=== PATIENT | male | born 1960 | race Caucasian/White ===

== ENCOUNTER 2023-07-14 20:21 | Inpatient (IN) | payer MEDICARE, MEDICAID ==
[~2023-07-14] VITALS: Ht 190.5 cm; Wt 86.4 kg
[2023-07-14] MEDS ORDERED: temazepam 15mg capsule PO PRN (21:00)
[2023-07-14 21:15] LABS: BASOPHILS # (AUTO) 0.1 X10'3 (0-0.2); BASOPHILS % (AUTO) 0.8 % (0-1); EOSINOPHILS # (AUTO) 0.1 X10'3 (0-0.9); EOSINOPHILS % (AUTO) 1.9 % (0-6); HEMATOCRIT 44.6 % (42.0-52.0); HEMOGLOBIN 14.9 g/dl (14.0-17.9); LYMPHOCYTES # (AUTO) 1.7 X10'3 (1.1-4.8); LYMPHOCYTES % (AUTO) 23.5 % (21-51); MEAN CORPUSCULAR HEMOGLOBIN 29.6 PG (27.0-31.0); MEAN CORPUSCULAR HGB CONC 33.5 g/dL (33.0-36.5); MEAN CORPUSCULAR VOLUME 88.3 FL (78-98); MEAN PLATELET VOLUME 7.8 FL (7.4-10.4); MONOCYTES # (AUTO) 0.4 X10'3 (0-0.9); MONOCYTES % (AUTO) 5.3 % (2-12); NEUTROPHILS % (AUTO) 68.5 % (42-75); PLATELET COUNT 254 X10'3 (140-440); RED BLOOD COUNT 5.05 X10'6 (4.70-6.10); RED CELL DISTRIBUTION WIDTH 13.4 % (11.5-14.5); WHITE BLOOD COUNT 7.3 X10'3 (4.5-11.0)
[2023-07-14] MEDS ORDERED: mag hydrox/Alum hydrox/simeth 30ml oral suspension PO PRN (21:20)
[2023-07-14] MEDS ORDERED: ondansetron/PF 4mg/2ml inj IV PRN (21:20)
[2023-07-14] MEDS ORDERED: magnesium 4gm in 100ml NS 100 ML IV PRN (21:20)
[2023-07-14] MEDS: normal saline 1000ml 1,000 ML IV SCH (21:20)
[2023-07-14] MEDS ORDERED: magnesium Cl slow-release 64mg tablet PO PRN (21:20)
[2023-07-14] MEDS ORDERED: acetaminophen 325mg tablet PO PRN (21:20)
[2023-07-14] MEDS ORDERED: potassium Cl 40MEQ/1/2NS 520ml 520 ML IV PRN (21:20)
[2023-07-14] MEDS ORDERED: potassium Cl 20 mEq SR tablet PO PRN ×2 (21:20)
[2023-07-14] MEDS ORDERED: magnesium hydroxide 30ml (MOM) UD suspension PO PRN (21:20)
[2023-07-14 21:21] LABS: APTT 28 SECONDS (22-32); INR 1.1 INR; PROTHROMBIN TIME 11.3 SECONDS (9.0-12.0)
[2023-07-14 21:23] LABS: ALANINE AMINOTRANSFERASE 25 U/L (12-78); ALBUMIN 3.6 G/DL (3.4-5.0); ALBUMIN/GLOBULIN RATIO 0.9 (1.1-1.5); ALKALINE PHOSPHATASE 87 IU/L (46-116); ANION GAP 7 (8-16); ASPARTATE AMINO TRANSFERASE 16 U/L (10-37); BILIRUBIN,TOTAL 0.5 MG/DL (0.1-1.0); BLOOD UREA NITROGEN 16 MG/DL (7-18); BUN/CREATININE RATIO 18.2 (10.0-20.0); CALCIUM 8.6 MG/DL (8.5-10.1); CHLORIDE 103 MMOL/L (99-107); CREATININE 0.88 MG/DL (0.60-1.10); GLUCOSE 146 MG/DL (70-104); POTASSIUM 3.5 MMOL/L (3.5-5.1); SODIUM 140 MMOL/L (135-145); TOTAL CARBON DIOXIDE 29.9 MMOL/L (24-32); TOTAL PROTEIN 7.5 G/DL (6.4-8.2); eCRCL 105 ML/MIN; eGFR 88 ML/MIN
[2023-07-14] MEDS ORDERED: PERFLUTREN PROTEIN-A MICROSPHR (Optison) 0.22 MG/ML 3ML VIAL IV PRN (21:25)
[2023-07-14 21:40] LABS: HEMOGLOBIN A1C 5.5 % (4.5-6.2)
[2023-07-15 02:48] LABS: BASOPHILS # (AUTO) 0.1 X10'3 (0-0.2); EOSINOPHILS # (AUTO) 0.1 X10'3 (0-0.9); EOSINOPHILS % (AUTO) 2.3 % (0-6); HEMATOCRIT 43.1 % (42.0-52.0); HEMOGLOBIN 14.8 g/dl (14.0-17.9); LYMPHOCYTES # (AUTO) 1.6 X10'3 (1.1-4.8); LYMPHOCYTES % (AUTO) 24.7 % (21-51); MEAN CORPUSCULAR HEMOGLOBIN 30.5 PG (27.0-31.0); MEAN CORPUSCULAR HGB CONC 34.3 g/dL (33.0-36.5); MEAN CORPUSCULAR VOLUME 88.8 FL (78-98); MEAN PLATELET VOLUME 7.9 FL (7.4-10.4); MONOCYTES # (AUTO) 0.4 X10'3 (0-0.9); MONOCYTES % (AUTO) 6.3 % (2-12); NEUTROPHILS # (AUTO) 4.3 X10'3 (1.8-7.7); NEUTROPHILS % (AUTO) 65.7 % (42-75); PLATELET COUNT 243 X10'3 (140-440); RED BLOOD COUNT 4.85 X10'6 (4.70-6.10); RED CELL DISTRIBUTION WIDTH 13.2 % (11.5-14.5); WHITE BLOOD COUNT 6.5 X10'3 (4.5-11.0)
[2023-07-15 02:53] LABS: ALBUMIN 3.6 G/DL (3.4-5.0); ANION GAP 8 (8-16); BLOOD UREA NITROGEN 18 MG/DL (7-18); BUN/CREATININE RATIO 17.5 (10.0-20.0); CALCIUM 8.2 MG/DL (8.5-10.1); CHLORIDE 106 MMOL/L (99-107); CHOL/HDL RATIO 3.3 (0.00-4.99); CHOLESTEROL 158 MG/DL (0-200); CREATININE 1.03 MG/DL (0.60-1.10); GLUCOSE 114 MG/DL (70-104); HDL CHOLESTEROL 48 MG/DL (35-60); LDL CHOLESTEROL 86 MG/DL (50-100); SODIUM 146 MMOL/L (135-145); TOTAL CARBON DIOXIDE 32.5 MMOL/L (24-32); TRIGLYCERIDES 80 MG/DL (20-135); eCRCL 90 ML/MIN; eGFR 73 ML/MIN
[2023-07-15] MEDS ORDERED: NO HOME MEDS (04:46)
[2023-07-15 06:06] VITALS: TEMP 98.9
[2023-07-15] MEDS: docusate sod 100mg capsule PO SCH (08:00)
[2023-07-15] MEDS: enoxaparin 40mg/0.4ml syringe SUBCUT SCH (08:22)
[2023-07-15] MEDS: aspirin 81mg, enteric-coated 1 TAB TABLET.DR PO SCH (08:22)
[2023-07-15 08:34] LABS: ALANINE AMINOTRANSFERASE 19 U/L (12-78); ALBUMIN 3.6 G/DL (3.4-5.0); ALBUMIN/GLOBULIN RATIO 0.9 (1.1-1.5); ALKALINE PHOSPHATASE 82 IU/L (46-116); ANION GAP 8 (8-16); ASPARTATE AMINO TRANSFERASE 20 U/L (10-37); BILIRUBIN,TOTAL 0.6 MG/DL (0.1-1.0); BLOOD UREA NITROGEN 18 MG/DL (7-18); BUN/CREATININE RATIO 19.8 (10.0-20.0); CALCIUM 8.3 MG/DL (8.5-10.1); CHLORIDE 108 MMOL/L (99-107); CREATININE 0.91 MG/DL (0.60-1.10); GLUCOSE 98 MG/DL (70-104); POTASSIUM 4.2 MMOL/L (3.5-5.1); SODIUM 146 MMOL/L (135-145); TOTAL CARBON DIOXIDE 29.8 MMOL/L (24-32); TOTAL PROTEIN 7.4 G/DL (6.4-8.2); eCRCL 102 ML/MIN; eGFR 85 ML/MIN
[2023-07-15 08:43] LABS: C-REACTIVE PROTEIN 0.35 MG/DL (0.0-0.5); CREATINE KINASE 74 U/L (39-308); THYROID STIMULATING HORMONE 1.68 ulU/ml (0.34-4.50)
[2023-07-15 08:47] LABS: LACTATE DEHYDROGENASE 166 U/L (85-227)
[2023-07-15 08:52] LABS: SYPHILIS SCREENING TEST POC NEGATIVE (Negative)
[2023-07-15 08:53] LABS: RHEUM FACTOR QUAL REFLEX TITER NEGATIVE (Neg)
[2023-07-15 12:24] LABS: HIV ANTIBODY 1&2 RAPID NON-REACTIVE (Neg)
[2023-07-15] MEDS ORDERED: LOSA50TA64 PO (13:57)
[2023-07-15] MEDS ORDERED: GABA-535 PO (13:59)
[2023-07-15] MEDS ORDERED: NICO-731 TOP (14:22)
[2023-07-15 14:41] VITALS: BP 149/87; PULSE 70; RESP 18; O2SAT 98
[2023-07-16] MEDS ORDERED: GADOTERATE MEGLUMINE 7.5 MMOL/15 ML VIAL IV ONE (09:36)
== END 2023-07-15 15:27 | disposition home or self-care (01) | DRG 552 ==
LOC: ER 20:21 → ED HOLD 21:21
PROVIDERS: ADMIT Internal Medicine Critical Care Medicine; ATTEND Internal Medicine
DX: M48.02 Spinal stenosis, cervical region (principal); M54.17 Radiculopathy, lumbosacral region; M54.13 Radiculopathy, cervicothoracic region; I10 Essential (primary) hypertension; F17.210 Nicotine dependence, cigarettes, uncomplicated; M50.23 Other cervical disc displacement, cervicothoracic region; M48.03 Spinal stenosis, cervicothoracic region; M51.34 Other intervertebral disc degeneration, thoracic region; M48.07 Spinal stenosis, lumbosacral region; M48.061 Spinal stenosis, lumbar region without neurogenic claudication; M54.16 Radiculopathy, lumbar region; G62.9 Polyneuropathy, unspecified; M13.88 Other specified arthritis, other site; M54.12 Radiculopathy, cervical region
CPT/HCPCS: 36415; 70553; 72141; 72146; 72148; 80048; 80053; 80061; 82550; 83036; 83615; 84443; 85025; 85610; 85651; 85730; 86140; 86430; 86703; 92508; 92616; 93005; 93306; 99285; A9575; G0378; J1650